=== PATIENT | female | born 1990 | race Two or more races ===

== ENCOUNTER 2023-02-18 12:05 | Emergency (ER) | payer OTHER ==
[~2023-02-18] VITALS: Ht 160 cm; Wt 53.0 kg
[2023-02-18 12:07] VITALS: BP 153/86; RESP 18; O2SAT 99
[2023-02-18 12:23] LABS: Basophils # (auto) 0.1 10 ^3/uL (0-0.2); Basophils % (auto) 1.1 % (0.0-2.0); Eosinophils # (auto) 0.6 10 ^3/uL (0-0.8); Eosinophils % (auto) 8.8 % (0.0-7.0); Hematocrit 39.9 % (36.0-46.0); Hemoglobin 13.6 g/dL (12.2-16.2); Lymphocytes % (auto) 28.7 % (10.0-50.0); Mean Corpuscular Hemoglobin 28.9 pg (28.0-32.0); Mean Corpuscular Volume 85.2 fL (80.0-100.0); Monocytes # (auto) 0.4 10 ^3/uL (0-1.3); Monocytes % (auto) 5.1 % (0.0-12.0); Neutrophils # (auto) 3.9 10 ^3/uL (1.6-8.6); Neutrophils % (auto) 56.3 % (37.0-80.0); Nucleated Red Blood Cells % 0.2 %; Red Blood Cells 4.69 10^6/uL (4.0-5.20); Red Cell Distribution Width 13.5 % (11.8-14.3)
[2023-02-18 12:48] LABS: Alanine Aminotransferase 39 U/L (7-40); Albumin 4.5 g/dL (3.2-4.8); Alkaline Phosphatase 117 U/L (46-116); Anion Gap 7 (5-15); Aspartate Aminotransferase 12 U/L (13-40); Bilirubin, Total 0.6 mg/dL (0.2-1.0); Blood Urea Nitrogen 46 mg/dL (9-23); Calcium 9.9 mg/dL (8.5-10.1); Carbon Dioxide 24 mmol/L (20-30); Chloride 106 mmol/L (98-107); Glucose 99 mg/dL (74-106); Potassium 4.9 mmol/L (3.5-5.1); Sodium 137 mmol/L (136-145); Total Protein 7.3 g/dL (5.7-8.2)
[2023-02-18 13:05] LABS: Urine Bacteria NONE SEEN /hpf (None Seen); Urine Blood TRACE /uL (Negative); Urine Clarity HAZY (Clear); Urine Protein, UAD 2+ (Negative); Urine Specific Gravity 1.014 (1.001-1.035); Urine Urobilinogen Normal (Negative); Urine WBC 1 /hpf (0 - 5); Urine pH 5.5 (5.0-8.0)
[2023-02-18 13:11] LABS: Urine Color Straw (Yellow)
[2023-02-18 15:06] VITALS: PULSE 71
[2023-02-18] MEDS ORDERED: ASPirin 325 MG TAB PO ONE (15:15)
== END 2023-02-18 17:00 | disposition left against medical advice (07) ==
LOC: ER 12:05
DX: R07.89 Other chest pain (principal); R10.2 Pelvic and perineal pain; I12.0 Hypertensive chronic kidney disease with stage 5 chronic kidney disease or end stage renal disease; N18.5 Chronic kidney disease, stage 5; Z90.49 Acquired absence of other specified parts of digestive tract
CPT/HCPCS: 36415; 71046; 80053; 81001; 83880; 84484; 84702; 85025; 93005

== ENCOUNTER 2023-09-03 03:58 | Inpatient (IN) | payer OTHER ==
[2023-09-03] VITALS (9 sets, daily range): BP systolic 87–103; BP diastolic 43–55; PULSE 74–90; RESP 13–16; TEMP 98–98.9; O2SAT 96
[~2023-09-03] VITALS: Ht 162.6 cm; Wt 72.4 kg
[~2023-09-03 03:58] MED LIST: LEVO500T91 PO
[2023-09-03] MEDS: SODIUM CHLORIDE 0.9% 1,000 ML IVB ONE (04:27)
[2023-09-03] MEDS: LORazepam 2MG/ML-1ML VIAL ONE (04:31)
[2023-09-03] MEDS: LORazepam 2MG/ML-1ML VIAL IV ONE (05:08)
[2023-09-03 05:11] LABS: Alanine Aminotransferase 28 U/L (7-40); Albumin 3.7 g/dL (3.2-4.8); Alkaline Phosphatase 81 U/L (46-116); Anion Gap 13 (5-15); Aspartate Aminotransferase 20 U/L (13-40); BUN/Creatinine Ratio 22.1 (10.0-20.0); Blood Urea Nitrogen 61 mg/dL (9-23); Calcium 9.2 mg/dL (8.7-10.4); Carbon Dioxide 20 mmol/L (20-30); Chloride 102 mmol/L (98-107); Glucose 227 mg/dL (74-106); Lipase 101 U/L (12-53); Potassium 3.9 mmol/L (3.5-5.1); Sodium 135 mmol/L (136-145)
[2023-09-03 05:12] LABS: Bilirubin, Total 0.4 mg/dL (0.2-1.0); Total Protein 5.9 g/dL (5.7-8.2)
[2023-09-03] MEDS: SODIUM CHLORIDE 0.9% 1,000 ML IV ONE (05:46)
[2023-09-03] MEDS: PANTOPRAZOLE 80 MG in SODIUM CHL 0.9% 100 ML IV ONE (05:52)
[2023-09-03] MEDS: PANTOPRAZOLE 40mg/50ML NS AE 50 ML IV ONE (05:54)
[2023-09-03] MEDS: OCTREOTIDE ACETATE 500 MCG/ML VL ONE (06:00)
[2023-09-03] MEDS: OCTREOTIDE ACETATE 100 MCG/ML VL ONE (06:00)
[2023-09-03] MEDS: PANTOPRAZOLE 40 MG/10 ML VIAL INJ IV ONE (06:03)
[2023-09-03 06:07] LABS: Basophils # (auto) 0 10 ^3/uL (0-0.2); Basophils % (auto) 0.4 % (0.0-2.0); Eosinophils # (auto) 0 10 ^3/uL (0-0.8); Eosinophils % (auto) 0.8 % (0.0-7.0); Hematocrit 19.6 % (36.0-46.0); Lymphocytes # (auto) 0.6 10 ^3/uL (0.4-5.4); Lymphocytes % (auto) 10.1 % (10.0-50.0); Mean Corpuscular Hemoglobin 28.4 pg (28.0-32.0); Mean Corpuscular Hgb Conc. 33.8 g/dL (32.0-36.0); Monocytes # (auto) 0.3 10 ^3/uL (0-1.3); Monocytes % (auto) 5.5 % (0.0-12.0); Neutrophils # (auto) 4.5 10 ^3/uL (1.6-8.6); Neutrophils % (auto) 83.2 % (37.0-80.0); Red Blood Cells 2.34 10^6/uL (4.0-5.20); White Blood Cell 5.5 10^3/uL (4.4-10.8)
[2023-09-03 06:10] LABS: Hemoglobin 6.6 g/dL (12.2-16.2)
[2023-09-03] MEDS: OCTREOTIDE ACETATE 100 MCG in SODIUM CHL 0.9% 50 ML IV ONE (06:11)
[2023-09-03] MEDS: OCTREOTIDE ACETATE 500 MCG in SODIUM CHL 0.9% 99 ML IV SCH (06:16)
[2023-09-03 06:38] LABS: INR 1.18 (0.9-1.15); Partial Thromboplastin Time 22.8 SEC (24.5-34.5); Prothrombin Time 12.4 sec (9.3-11.8)
[2023-09-03 06:43] LABS: Platelet Estimate Decreased
[2023-09-03] MEDS: NOREPINEPHRINE 8 MG/250ML KIT 250 ML IV SCH (06:44)
[2023-09-03 06:47] LABS: Macrocytosis Slight
[2023-09-03] MEDS ORDERED: DOCUSATE SOD 100 MG CAP PO PRN (09:00)
[2023-09-03] MEDS ORDERED: ONDANSETRON HCL 4 MG/2 ML VIAL IV PRN (09:00)
[2023-09-03] MEDS ORDERED: MORPHINE SULFATE INJ 2 MG/ml SYRG IV PRN (09:00)
[2023-09-03] MEDS ORDERED: DEXTROSE (50%) 50ML SYRG IV PRN (09:00)
[2023-09-03 09:18] LABS: Hematocrit 22.2 % (36.0-46.0); Hemoglobin 7.2 g/dL (12.2-16.2)
[2023-09-03] MEDS: SODIUM CHLORIDE 0.9% 1,000 ML IV SCH ×2 (09:55→16:30)
[2023-09-03] MEDS: PIPERACILLIN-TAZOB 3.375GM 100 ML IV ONE (09:55)
[2023-09-03] MEDS: PANTOPRAZOLE 40mg/50ML NS AE 50 ML IV SCH (09:55)
[2023-09-03] MEDS: InsuLIN REG 1unit/0.01ml Soln (100units/ml) SC SCH (12:00)
[2023-09-03] MEDS ORDERED: PIPERACILLIN-TAZOB 3.375GM 100 ML IV SCH (12:00)
[2023-09-03 12:10] LABS: Urine Bacteria FEW /hpf (None Seen); Urine Blood 3+ /uL (Negative); Urine Clarity Ex.Turbid (Clear); Urine Color Red (Yellow); Urine Protein, UAD 2+ (Negative); Urine Specific Gravity 1.012 (1.001-1.035); Urine Urobilinogen Normal (Negative); Urine WBC 1 /hpf (0 - 5)
[2023-09-03] MEDS: ACCU-CHEK COMFORT CURVE STRIP VI SCH (12:25)
[2023-09-03] MEDS: PIPERACILLIN-TAZOB 3.375GM 100 ML IV SCH (14:00)
[2023-09-03] MEDS: FUROSEMIDE 40 MG/4 ML VIAL IV ONE (16:30)
[2023-09-03] MEDS: traMADol HCL 50 MG TAB PO PRN (21:31)
[2023-09-04] VITALS (7 sets, daily range): BP systolic 91–135; BP diastolic 45–64; PULSE 60–68; RESP 12–49; TEMP 97.5–97.9; O2SAT 96–99
[2023-09-04] MEDS: OCTREOTIDE ACETATE 500 MCG/ML VL ONE (01:32)
[2023-09-04] MEDS ORDERED: SODI325T PO (04:50)
[2023-09-04] MEDS ORDERED: ASPI-543 PO (04:50)
[2023-09-04] MEDS ORDERED: CALC0.25 PO (04:50)
[2023-09-04] MEDS ORDERED: LISI2.5T47 PO (04:50)
[2023-09-04] MEDS ORDERED: PANT40TA2 PO (04:50)
[2023-09-04] MEDS ORDERED: FURO1TAB33 PO (04:50)
[2023-09-04 05:31] LABS: Basophils # (auto) 0 10 ^3/uL (0-0.2); Basophils % (auto) 0.6 % (0.0-2.0); Eosinophils # (auto) 0.2 10 ^3/uL (0-0.8); Eosinophils % (auto) 4.1 % (0.0-7.0); Hematocrit 32.5 % (36.0-46.0); Hemoglobin 10.8 g/dL (12.2-16.2); Lymphocytes # (auto) 1.2 10 ^3/uL (0.4-5.4); Lymphocytes % (auto) 25.8 % (10.0-50.0); Mean Corpuscular Hemoglobin 29.4 pg (28.0-32.0); Mean Corpuscular Hgb Conc. 33.4 g/dL (32.0-36.0); Mean Corpuscular Volume 88.2 fL (80.0-100.0); Monocytes # (auto) 0.3 10 ^3/uL (0-1.3); Neutrophils % (auto) 62.5 % (37.0-80.0); Nucleated Red Blood Cells % 0.2 %; Red Blood Cells 3.68 10^6/uL (4.0-5.20); Red Cell Distribution Width 14.6 % (11.8-14.3); White Blood Cell 4.8 10^3/uL (4.4-10.8)
[2023-09-04 06:17] LABS: Alanine Aminotransferase 19 U/L (7-40); Albumin 3.2 g/dL (3.2-4.8); Alkaline Phosphatase 56 U/L (46-116); Anion Gap 7 (5-15); Aspartate Aminotransferase 14 U/L (13-40); BUN/Creatinine Ratio 17.2 (10.0-20.0); Calcium 9.1 mg/dL (8.7-10.4); Carbon Dioxide 21 mmol/L (20-30); Glucose 92 mg/dL (74-106); Potassium 4.7 mmol/L (3.5-5.1); Sodium 140 mmol/L (136-145)
[2023-09-04 06:18] LABS: Bilirubin, Total 1.9 mg/dL (0.2-1.0)
[2023-09-04 06:33] LABS: Blood Urea Nitrogen 47 mg/dL (9-23); Chloride 112 mmol/L (98-107)
[2023-09-04] MEDS: FUROSEMIDE 40 MG/4 ML VIAL IV ONE ×2 (11:09→14:47)
[2023-09-04 11:13] LABS: Free T4 (Free Thyroxine) 0.91 ng/dL (0.89-1.76)
[2023-09-04 11:14] LABS: Follicle Stimulating Hormone 28.37 IU/L (SEE BELOW); Leuteinizing Hormone 5.1 IU/L
[2023-09-04 11:15] LABS: Prolactin 19.85 ng/mL (2.8-29.2)
[2023-09-04 12:08] LABS: INR 1.08 (0.9-1.15); Partial Thromboplastin Time 25.1 SEC (24.5-34.5); Prothrombin Time 11.4 sec (9.3-11.8)
[2023-09-04 12:25] LABS: % Iron Saturation 58.5 % (15-50)
[2023-09-04 14:23] LABS: Magnesium 1.7 mg/dL (1.6-2.6)
[2023-09-04 14:25] LABS: Phosphorus 3.3 mg/dL (2.4-5.1)
[2023-09-04 21:22] LABS: Amphetamine Screen, Urine Neg (NEGATIVE); Barbiturate Scree,Urine Neg (NEGATIVE); Benzodiazephine Screen, Urine Neg (NEGATIVE); Cocaine Screen, Urine Neg (NEGATIVE); Opiate Scree,Urine Neg (NEGATIVE)
[2023-09-04 21:23] LABS: Cannabinoid Screen, Urine Neg (NEGATIVE); Phencyclidine Screen, Urine Neg (NEGATIVE)
[2023-09-05] VITALS (8 sets, daily range): BP systolic 88–101; BP diastolic 47–66; PULSE 62–83; RESP 16–18; TEMP 97.9–98.6; O2SAT 96–100
[2023-09-05 06:35] LABS: Basophils # (auto) 0 10 ^3/uL (0-0.2); Basophils % (auto) 0.8 % (0.0-2.0); Eosinophils # (auto) 0.3 10 ^3/uL (0-0.8); Eosinophils % (auto) 5.2 % (0.0-7.0); Hematocrit 32.7 % (36.0-46.0); Hemoglobin 11.1 g/dL (12.2-16.2); Lymphocytes % (auto) 18.6 % (10.0-50.0); Mean Corpuscular Hemoglobin 29.6 pg (28.0-32.0); Mean Corpuscular Hgb Conc. 33.9 g/dL (32.0-36.0); Mean Corpuscular Volume 87.4 fL (80.0-100.0); Monocytes # (auto) 0.4 10 ^3/uL (0-1.3); Monocytes % (auto) 7.4 % (0.0-12.0); Neutrophils # (auto) 3.6 10 ^3/uL (1.6-8.6); Nucleated Red Blood Cells % 0.1 %; Red Blood Cells 3.74 10^6/uL (4.0-5.20); Red Cell Distribution Width 14.2 % (11.8-14.3); White Blood Cell 5.4 10^3/uL (4.4-10.8)
[2023-09-05 06:39] LABS: INR 1.11 (0.9-1.15); Partial Thromboplastin Time 24.8 SEC (24.5-34.5); Prothrombin Time 11.7 sec (9.3-11.8)
[2023-09-05 06:49] LABS: Alanine Aminotransferase 17 U/L (7-40); Alkaline Phosphatase 56 U/L (46-116); Anion Gap 8 (5-15); Aspartate Aminotransferase 11 U/L (13-40); BUN/Creatinine Ratio 13.7 (10.0-20.0); Bilirubin, Total 1.1 mg/dL (0.2-1.0); Blood Urea Nitrogen 41 mg/dL (9-23); Calcium 9.3 mg/dL (8.7-10.4); Carbon Dioxide 22 mmol/L (20-30); Chloride 107 mmol/L (98-107); Glucose 105 mg/dL (74-106); Potassium 4.3 mmol/L (3.5-5.1); Sodium 137 mmol/L (136-145); Total Protein 5.6 g/dL (5.7-8.2)
[2023-09-05 06:50] LABS: Albumin 3.5 g/dL (3.2-4.8)
[2023-09-05 08:06] LABS: Haptoglobin 65 mg/dL (33-278)
[2023-09-05 11:07] LABS: Anti-Centromere B Antibody <0.2 AI (0.0-0.9); Anti-Jo-1 Antibody <0.2 AI (0.0-0.9); Anti-dsDNA Antibody <1 IU/mL (0-9); Antichromatin Antibody <0.2 AI (0.0-0.9); Antiscleroderma-70 Antibody <0.2 AI (0.0-0.9); RNP Antibody <0.2 AI (0.0-0.9); Sjogren's Anti-SS-A Antibody <0.2 AI (0.0-0.9); Sjogren's Anti-SS-B Antibody <0.2 AI (0.0-0.9); Smith Antibody <0.2 AI (0.0-0.9)
[2023-09-05] MEDS ORDERED: ONDANSETRON HCL 4 MG/2 ML VIAL ONE (11:17)
[2023-09-05] MEDS ORDERED: MIDAZOLAM HCL 2MG/2ML 2ml VIAL (1mg/ml) ONE (11:17)
[2023-09-05] MEDS ORDERED: PROPOFOL 10 MG/ML 20 ML IV ONE (11:17)
[2023-09-05] MEDS ORDERED: fentaNYL CITRATE 100 MCG/2 ML VL ONE (11:17)
[2023-09-05] MEDS ORDERED: GLYCOPYRROLATE 0.2 MG/ML 1ML VIAL ONE (11:18)
[2023-09-05 12:07] LABS: Anti-dsDNA Antibody <1 IU/mL (0-9)
[2023-09-05] MEDS: HYDROmorphone HCL 2 MG/ML VL/or syr IV ONE (13:50)
[2023-09-05] MEDS: cefTRIAXone 1GM/50ML D5W 50 ML IV ONE (14:09)
[2023-09-05] MEDS: SODIUM CHLORIDE 0.9% 1,000 ML IV SCH (15:46)
[2023-09-05] MEDS: SUCRALFATE 1 GM/10 ML ORAL SUSP PO SCH (17:48)
[2023-09-05 19:29] LABS: Basophils # (auto) 0 10 ^3/uL (0-0.2); Basophils % (auto) 0.6 % (0.0-2.0); Eosinophils # (auto) 0.2 10 ^3/uL (0-0.8); Eosinophils % (auto) 4.8 % (0.0-7.0); Hemoglobin 10.6 g/dL (12.2-16.2); Lymphocytes # (auto) 0.8 10 ^3/uL (0.4-5.4); Lymphocytes % (auto) 18.6 % (10.0-50.0); Mean Corpuscular Hemoglobin 29.5 pg (28.0-32.0); Mean Corpuscular Hgb Conc. 33.1 g/dL (32.0-36.0); Mean Corpuscular Volume 89.1 fL (80.0-100.0); Monocytes # (auto) 0.4 10 ^3/uL (0-1.3); Monocytes % (auto) 9.1 % (0.0-12.0); Neutrophils # (auto) 2.9 10 ^3/uL (1.6-8.6); Neutrophils % (auto) 66.9 % (37.0-80.0); Nucleated Red Blood Cells % 0.1 %; Red Cell Distribution Width 14.4 % (11.8-14.3); White Blood Cell 4.3 10^3/uL (4.4-10.8)
[2023-09-05 19:57] LABS: Alanine Aminotransferase 14 U/L (7-40); Albumin 3.4 g/dL (3.2-4.8); Alkaline Phosphatase 55 U/L (46-116); Anion Gap 9 (5-15); Aspartate Aminotransferase 13 U/L (13-40); BUN/Creatinine Ratio 11.1 (10.0-20.0); Blood Urea Nitrogen 33 mg/dL (9-23); Calcium 9.1 mg/dL (8.5-10.1); Carbon Dioxide 20 mmol/L (20-30); Chloride 109 mmol/L (98-107); Glucose 106 mg/dL (74-106); Potassium 4.3 mmol/L (3.5-5.1); Sodium 138 mmol/L (136-145)
[2023-09-05 19:58] LABS: Bilirubin, Total 0.5 mg/dL (0.2-1.0); Total Protein 5.6 g/dL (5.7-8.2)
[2023-09-06] VITALS (7 sets, daily range): BP systolic 94–107; BP diastolic 43–60; PULSE 69–79; RESP 18–20; TEMP 97.9–99.1; O2SAT 95–99
[2023-09-06 06:45] LABS: Basophils # (auto) 0 10 ^3/uL (0-0.2); Eosinophils # (auto) 0.2 10 ^3/uL (0-0.8); Eosinophils % (auto) 6.4 % (0.0-7.0); Hematocrit 25.5 % (36.0-46.0); Hemoglobin 8.6 g/dL (12.2-16.2); Lymphocytes # (auto) 0.8 10 ^3/uL (0.4-5.4); Lymphocytes % (auto) 25.4 % (10.0-50.0); Mean Corpuscular Hemoglobin 29.6 pg (28.0-32.0); Mean Corpuscular Hgb Conc. 33.7 g/dL (32.0-36.0); Mean Corpuscular Volume 87.7 fL (80.0-100.0); Monocytes # (auto) 0.3 10 ^3/uL (0-1.3); Monocytes % (auto) 9.3 % (0.0-12.0); Neutrophils # (auto) 1.9 10 ^3/uL (1.6-8.6); Neutrophils % (auto) 57.9 % (37.0-80.0); Red Blood Cells 2.91 10^6/uL (4.0-5.20); Red Cell Distribution Width 14.2 % (11.8-14.3); White Blood Cell 3.3 10^3/uL (4.4-10.8)
[2023-09-06 07:06] LABS: Chloride 110 mmol/L (98-107); Potassium 4.3 mmol/L (3.5-5.1); Sodium 139 mmol/L (136-145)
[2023-09-06 07:07] LABS: Anion Gap 9 (5-15); Calcium 8.7 mg/dL (8.5-10.1); Carbon Dioxide 20 mmol/L (20-30)
[2023-09-06 07:12] LABS: Blood Urea Nitrogen 27 mg/dL (9-23); Glucose 81 mg/dL (74-106)
[2023-09-06] MEDS: cefTRIAXone 1GM/50ML D5W 50 ML IV SCH (10:08)
[2023-09-07 15:36] LABS: Anticardiolipin IgG Antibody <9 GPL U/mL (0-14); Anticardiolipin IgM Antibody <9 MPL U/mL (0-12)
[2023-09-07 16:06] LABS: von Willebrand Factor (vWF) Ag 149 % (50-200)
[2023-09-16] MEDS ORDERED: cefTRIAXone 1GM/50ML D5W 50 ML IV ONE (10:00)
== END 2023-09-06 19:30 | disposition home or self-care (01) | DRG 241 ==
LOC: ER 03:58 → EDBD 03:58 → TELE 10:45 → TELE-EAST 09-04 03:35
PROVIDERS: ADMIT Internal Medicine; ATTEND Internal Medicine
PROC: 30233N1 Transfusion of Nonautologous Red Blood Cells into Peripheral Vein, Percutaneous Approach (ICD-10-PCS; principal; 2023-09-03)
PROC: 0DB98ZX Excision of Duodenum, Via Natural or Artificial Opening Endoscopic, Diagnostic (ICD-10-PCS; 2023-09-05)
PROC: 0DB68ZX Excision of Stomach, Via Natural or Artificial Opening Endoscopic, Diagnostic (ICD-10-PCS; 2023-09-05)
DX: K29.81 Duodenitis with bleeding (principal); R57.1 Hypovolemic shock; K85.90 Acute pancreatitis without necrosis or infection, unspecified; Q25.5 Atresia of pulmonary artery; I21.A1 Myocardial infarction type 2; N18.4 Chronic kidney disease, stage 4 (severe); Z76.82 Awaiting organ transplant status; K26.4 Chronic or unspecified duodenal ulcer with hemorrhage; K29.71 Gastritis, unspecified, with bleeding; D69.3 Immune thrombocytopenic purpura; I50.20 Unspecified systolic (congestive) heart failure; N91.1 Secondary amenorrhea; N93.8 Other specified abnormal uterine and vaginal bleeding; N97.0 Female infertility associated with anovulation; N92.1 Excessive and frequent menstruation with irregular cycle; I13.0 Hypertensive heart and chronic kidney disease with heart failure and stage 1 through stage 4 chronic kidney disease, or unspecified chronic kidney disease; K21.9 Gastro-esophageal reflux disease without esophagitis; F41.9 Anxiety disorder, unspecified; Z63.72 Alcoholism and drug addiction in family; Z81.3 Family history of other psychoactive substance abuse and dependence; Z80.1 Family history of malignant neoplasm of trachea, bronchus and lung; Q21.0 Ventricular septal defect; Z95.2 Presence of prosthetic heart valve; Z79.899 Other long term (current) drug therapy; Z79.82 Long term (current) use of aspirin; Z90.49 Acquired absence of other specified parts of digestive tract; D62 Acute posthemorrhagic anemia
CPT/HCPCS: 36415; 36430; 71045; 74176; 76856; 80048; 80053; 80061; 80307; 81001; 81241; 82140; 82270; 82306; 82607; 82670; 82962; 83001; 83002; 83010; 83036; 83516; 83540; 83550; 83605; 83615; 83690; 83735; 84100; 84146; 84439; 84443; 84484; 84702; 85014; 85018; 85025; 85246; 85384; 85610; 85730; 86147; 86225; 86235; 86850; 86900; 86901; 86920; 87040; 87086; 93005; 93306; 96365; 96375; 99291; C9113; G0378; J1815; J2250; J2405; J2543; J2704